=== PATIENT | male | born 1985 | race Caucasian/White ===

== ENCOUNTER 2018-09-08 07:54 | Emergency (ER) | payer MEDICAID ==
[~2018-09-08] VITALS: Ht 167.6 cm; Wt 80.1 kg
[2018-09-08 07:58] VITALS: Ht 167.6 cm; Wt 80.1 kg
--- NOTE | 2018-09-08 08:13 | ERD ---
ER Documentation Chief Complaint Chief Complaint sore throat x 3 week denies sob HPI 33-year-old male presents with complaint of sore throat for the past 3 weeks. States that he is also had fever on and off during that time. Denies any treatments. Denies drooling, trismus, difficulty swallowing, muffled voice, di fficulty breathing, rash, or neck stiffness. Up-to-date on vaccines. Denies medical problems. Denies allergies. ROS All systems reviewed and are negative except as per history of present illness. Medications Home Meds Active Scripts Ibuprofen* (Motrin*) 600 Mg Tab, 600 MG PO Q6H PRN for PAIN AND OR ELEVATED TEMP, #30 TAB Prov:CHRISTIANA MEI 09/08/18 Allergies Allergies: Coded Allergies: No Known Allergy (Unverified , 09/08/18) PMhx/Soc Medical and Surgical Hx: pt denies Medical Hx, pt denies Surgical Hx Hx Alcohol Use: Yes Hx Substance Use: Yes Hx Tobacco Use: No Smoking Status: Never smoker FmHx Family History: No diabetes, No coronary disease, No other Physical Exam Vitals Vital Signs Date Temp Pulse Resp B/P (MAP) Pulse Ox O2 O2 Flow FiO2 Time Delivery Rate 09/08/18 97.8 68 18 153/88 99 07:58 (109) Physical Exam Const: No acute distress Head: Atraumatic Eyes: Normal Conjunctiva ENT: Normal External Ears, Nose and Mouth. Tonsils are nonedematous or erythematous bilaterally with no exudates. Uvula is midline. There are no peritonsilar masses noted. There is no trismus or drooling noted. Neck: Full range of motion. No meningismus. Resp: Clear to auscultation bilaterally Cardio: Regular rate and rhythm, no murmurs Abd: Soft, non tender, non distended. Normal bowel sounds Skin: No petechiae or rashes Back: No midline or flank tenderness Ext: No cyanosis, or edema Neur: Awake and alert Psych: Normal Mood and Affect Procedures/MDM MDM: Rapid strep was performed is negative. Patient's presentation is consistent with viral pharyngitis. Patient advised to take ibuprofen for pain and drink hot liquids for comfort and to increase circulation to the throat. I have low suspicion for epiglottitis, peritonsilar abscess, ludwigs angina, retropharyngeal abscess, or other emergent etiologies based on patients exam and history. Patient discharged with strict ER precautions. Patient advised to follow up with PMD. All questions answered at discharge. Departure Diagnosis: Primary Impression: Viral pharyngitis Condition: CHRISTIANA Torres September 08, 2018 08:13
[2018-09-08] MEDS ORDERED: IBUP-1542 PO (08:14)
[2018-09-08 09:48] VITALS: BP 138/87; PULSE 76; RESP 19
== END 2018-09-08 09:48 | disposition home or self-care (01) ==
LOC: FTE 07:54
DX: J02.9 Acute pharyngitis, unspecified (principal)
CPT/HCPCS: 87880; Z7502; 99283